=== PATIENT | male | born 1960 | race Asian ===

== ENCOUNTER → 2017-08-15 | Outpatient (CLI) | payer OTHER ==
[~2017-08-15] MED LIST: CETIRIZINE HCL5 MG PO; CYCLOBENZAPRINE5 MG PO; NAPROXEN250 MG PO
== END ==
LOC: RAD 07:03
DX: J06.9 Acute upper respiratory infection, unspecified (principal); R04.2 Hemoptysis

== ENCOUNTER → 2020-11-22 | Outpatient (CLI) | payer OTHER | LOC: LAB 14:18 | PROVIDERS: ATTEND Internal Medicine | DX: Z20.822 Contact with and (suspected) exposure to COVID-19 (principal) ==